=== PATIENT | female | born 1980 | race Caucasian/White ===

== ENCOUNTER → 2023-08-26 10:51 | Outpatient (REF) | payer OTHER, SELFPAY | LOC: RAD 10:51 | PROVIDERS: ATTENDING PHYSICIAN Obstetrics & Gynecology; FAMILY PHYSICIAN Nurse Practitioner Adult Health | DX: Z31.41 Encounter for fertility testing (principal) | CPT/HCPCS: 58340; 74740 ==

== ENCOUNTER → 2024-01-06 16:07 | Outpatient (REF) | payer OTHER, SELFPAY | LOC: WDC 16:07 | PROVIDERS: ATTENDING PHYSICIAN Obstetrics & Gynecology; FAMILY PHYSICIAN Nurse Practitioner Adult Health | DX: Z12.31 Encounter for screening mammogram for malignant neoplasm of breast (principal) | CPT/HCPCS: 77063; 77067 ==

== ENCOUNTER → 2024-10-31 14:41 | Outpatient (REF) | payer OTHER, SELFPAY | LOC: HWRAD 14:41 | PROVIDERS: ATTENDING PHYSICIAN Obstetrics & Gynecology; FAMILY PHYSICIAN Nurse Practitioner Adult Health | DX: G89.18 Other acute postprocedural pain (principal); O90.89 Other complications of the puerperium, not elsewhere classified; R52 Pain, unspecified | CPT/HCPCS: 76830; 76856 ==